=== PATIENT | female | born 1965 | race Caucasian/White ===

== ENCOUNTER 2021-06-27 13:59 | Inpatient (IN) | payer OTHER ==
[~2021-06-27] VITALS: Ht 149.9 cm; Wt 113.6 kg
--- NOTE | 2021-06-27 14:00 | NUR ---
PT ARRIVED VIA EMS FROM [place]. PT IS ALERT AND ORIENTED. PT STATES AT APPROX 1230 TODAY SHE EXPERIENCED NUMBNESS OF HER TONGUE AND NUMBNESS IN HER LEFT LEG AND ARM. PT SAYS HER LEFT HAND WAS ALSO WEAK. EMS REPORTS LEFT FACIAL DROOP. CURRENTLY PATIENT HAS IMPROVED. HAS CHRONIC OSTEOARTHRITIS IN BOTH KNEES AND PT HAS DIFFICULTY BENDING OR STRAIGHTENING BOTH KNEES. NIH IS CURRENTLY 1. PT WITH DECREASED SENSATION TO LIGHT TOUCH OVER LEFT FACE,ARM AND LEG. 1445 TELE NEURO EXAM COMPLETED WITH DR HPOKINS. RECOMMENDS ADMISSION. PT DENIES ALTERED SENSATION OVER LEFT FACE,ARM AND LEG DURING DR VALLE EXAM.
[2021-06-27] MEDS ORDERED: iohexol 350MG/ML 100ml bottle IV ONE (14:08)
[2021-06-27 14:12] LABS: BASOPHILS % (AUTO) 0.5 % (0-1); EOSINOPHILS # (AUTO) 0.1 X10'3 (0-0.9); EOSINOPHILS % (AUTO) 1.5 % (0-6); HEMATOCRIT 44.4 % (35.0-45.0); HEMOGLOBIN 14.7 g/dl (12.0-16.0); LYMPHOCYTES # (AUTO) 1.5 X10'3 (1.1-4.8); LYMPHOCYTES % (AUTO) 21.2 % (21-51); MEAN CORPUSCULAR HEMOGLOBIN 30.1 PG (27.0-31.0); MEAN CORPUSCULAR VOLUME 91.2 FL (78-98); MEAN PLATELET VOLUME 6.6 FL (7.4-10.4); MONOCYTES # (AUTO) 0.4 X10'3 (0-0.9); MONOCYTES % (AUTO) 6.2 % (2-12); NEUTROPHILS # (AUTO) 4.9 X10'3 (1.8-7.7); NEUTROPHILS % (AUTO) 70.6 % (42-75); PLATELET COUNT 263 X10'3 (140-440); RED BLOOD COUNT 4.87 X10'6 (4.20-5.60)
[2021-06-27 14:26] LABS: PARTIAL THROMBOPLASTIN TIME 27 SECONDS (22-32)
[2021-06-27 14:29] LABS: ALANINE AMINOTRANSFERASE 35 U/L (12-78); ALBUMIN 4.2 G/DL (3.4-5.0); ALKALINE PHOSPHATASE 93 IU/L (46-116); ANION GAP 11 (8-16); ASPARTATE AMINO TRANSFERASE 23 U/L (10-37); BILIRUBIN,TOTAL 0.4 MG/DL (0.1-1.0); BLOOD UREA NITROGEN 15 MG/DL (7-18); BUN/CREATININE RATIO 21.7 (6.6-38.0); CALCIUM 9.3 MG/DL (8.5-10.1); CHLORIDE 104 MMOL/L (99-107); CREATININE 0.69 MG/DL (0.40-0.90); GLUCOSE 95 MG/DL (70-104); POTASSIUM 3.9 MMOL/L (3.5-5.1); SODIUM 142 MMOL/L (135-145); TOTAL CARBON DIOXIDE 27.1 MMOL/L (24-32); TOTAL PROTEIN 8.4 G/DL (6.4-8.2); eGFR 88 ML/MIN
[2021-06-27 14:33] LABS: TROPONIN I < 0.04 NG/ML (0.0-0.05)
[2021-06-27] MEDS ORDERED: SERT-434 PO (15:25)
[2021-06-27] MEDS ORDERED: MELO-102 PO (15:25)
[2021-06-27] MEDS ORDERED: diphenhydrAMINE 25mg capsule PO PRN (16:40)
[2021-06-27] MEDS ORDERED: bisacodyl 10mg suppository rectal RC PRN (16:40)
[2021-06-27] MEDS ORDERED: ondansetron/PF 4mg/2ml inj IV PRN (16:40)
[2021-06-27] MEDS ORDERED: mag hydrox/Alum hydrox/simeth 30ml oral suspension PO PRN (16:40)
[2021-06-27] MEDS ORDERED: diphenhydrAMINE 50 mg/ml inj IV PRN (16:40)
[2021-06-27] MEDS ORDERED: metoclopramide 5 mg/ml inj IV PRN (16:40)
[2021-06-27] MEDS ORDERED: acetaminophen 325mg tablet PO PRN ×2 (16:40)
[2021-06-27] MEDS ORDERED: magnesium hydroxide 30ml (MOM) UD suspension PO PRN (16:40)
[2021-06-27] MEDS ORDERED: acetaminophen 650mg rectal suppository RC PRN (16:40)
[2021-06-27] MEDS ORDERED: morphine 2 MG/ML inj. syringe IV PRN (16:40)
[2021-06-27] MEDS ORDERED: HYDROcodone/acetaminophen 10/325mg tab PO PRN (16:40)
[2021-06-27] MEDS ORDERED: ondansetron 4mg rapidly disintigrating tab PO PRN (16:40)
[2021-06-27] MEDS ORDERED: HYDROcodone/acetaminophen 5mg/325mg tablet PO PRN (16:40)
[2021-06-27 17:54] LABS: MAGNESIUM 2.2 MG/DL (1.5-2.4); PHOSPHORUS 3.1 MG/DL (2.3-4.5)
[2021-06-27] MEDS: normal saline 1000ml 1,000 ML IV SCH (18:11)
--- NOTE | 2021-06-27 18:19 | NUR ---
pt up to [facility]
[2021-06-27 18:33] LABS: HEMOGLOBIN A1C 5.9 % (4.5-6.2)
[2021-06-27 19:19] LABS: UA COLLECTION TYPE CLN CATCH MIDSTREAM
[2021-06-27 19:20] LABS: CLARITY,URINE SLIGHTLY CLOUDY (Clear); COLOR,URINE YELLOW (Yellow)
[2021-06-27 19:21] LABS: PROTEIN,URINE NEGATIVE (Neg)
[2021-06-27 19:22] LABS: GLUCOSE, URINE NEGATIVE (Neg); KETONES,URINE NEGATIVE (Neg); LEUKOCYTE ESTERASE ,URINE NEGATIVE (Neg); NITRITES, URINE POSITIVE (Neg); OCCULT BLOOD,URINE NEGATIVE (Neg); UROBILINOGEN,URINE 0.2 E.U/dL (0.2-1.0)
[2021-06-27 19:27] LABS: RBC,URINE 0-2 /HPF (0-2)
--- NOTE | 2021-06-27 19:27 | NUR ---
PT SITTING UPRIGHT IN BED. ABLE TO COMMUNICATE HISTORY AND REASON FOR COMING TO ER. ALL PRIOR SYMPTOMS ARE REPORTED AAS RESOLVED. PT ONLY REPORTS SLIGHT TINGLING SENSATION TO LEFT CHEEK.
[2021-06-27 19:28] LABS: BACTERIA,URINE 4+ /HPF (Neg); MUCUS STRANDS NONE SEEN /LPF (Neg); SQUAMOUS EPITHELIAL CELL,UR FEW /LPF (FEW)
[2021-06-27] MEDS: docusate sod 100mg capsule PO SCH (20:00)
[2021-06-27] MEDS ORDERED: temazepam 15mg capsule PO PRN (21:00)
[2021-06-28] MEDS: heparin, porcine 5000 units/ml vial SQ SCH ×3 (00:07→16:03)
--- NOTE | 2021-06-28 06:46 | NUR ---
Patient in room AYDE 349. I have received report from Flavia FOY and had the opportunity to ask questions and assume patient care.
[2021-06-28 07:00] VITALS: BP 110/61
[2021-06-28 07:04] LABS: BASOPHILS % (AUTO) 0.8 % (0-1); EOSINOPHILS # (AUTO) 0.1 X10'3 (0-0.9); EOSINOPHILS % (AUTO) 2.6 % (0-6); HEMATOCRIT 38.9 % (35.0-45.0); LYMPHOCYTES # (AUTO) 1.4 X10'3 (1.1-4.8); LYMPHOCYTES % (AUTO) 25.3 % (21-51); MEAN CORPUSCULAR HEMOGLOBIN 30.6 PG (27.0-31.0); MEAN CORPUSCULAR HGB CONC 33.5 g/dL (33.0-36.5); MEAN CORPUSCULAR VOLUME 91.3 FL (78-98); MEAN PLATELET VOLUME 7.1 FL (7.4-10.4); MONOCYTES # (AUTO) 0.5 X10'3 (0-0.9); MONOCYTES % (AUTO) 8.8 % (2-12); NEUTROPHILS # (AUTO) 3.5 X10'3 (1.8-7.7); NEUTROPHILS % (AUTO) 62.5 % (42-75); PLATELET COUNT 229 X10'3 (140-440); RED BLOOD COUNT 4.26 X10'6 (4.20-5.60); WHITE BLOOD COUNT 5.6 X10'3 (4.5-11.0)
[2021-06-28] MEDS: normal saline 1000ml 1,000 ML IV SCH (07:30)
[2021-06-28] MEDS ORDERED: pantoprazole 40mg Tablet.DR PO SCH (07:30)
[2021-06-28 07:32] LABS: ALANINE AMINOTRANSFERASE 30 U/L (12-78); ALBUMIN 3.3 G/DL (3.4-5.0); ALBUMIN/GLOBULIN RATIO 0.9 (1.1-1.5); ALKALINE PHOSPHATASE 80 IU/L (46-116); ANION GAP 10 (8-16); ASPARTATE AMINO TRANSFERASE 18 U/L (10-37); BILIRUBIN,TOTAL 0.2 MG/DL (0.1-1.0); BLOOD UREA NITROGEN 17 MG/DL (7-18); CHLORIDE 108 MMOL/L (99-107); CHOL/HDL RATIO 6.5 (0.00-4.99); CHOLESTEROL 265 MG/DL (0-200); CREATININE 0.68 MG/DL (0.40-0.90); GLUCOSE 107 MG/DL (70-104); HDL CHOLESTEROL 41 MG/DL (35-60); LDL CHOLESTEROL 185 MG/DL (50-100); POTASSIUM 3.9 MMOL/L (3.5-5.1); SODIUM 143 MMOL/L (135-145); TOTAL CARBON DIOXIDE 25.5 MMOL/L (24-32); TOTAL PROTEIN 6.9 G/DL (6.4-8.2); TRIGLYCERIDES 192 MG/DL (20-135); eGFR 90 ML/MIN
[2021-06-28] MEDS: docusate sod 100mg capsule PO SCH (07:33)
[2021-06-28] MEDS ORDERED: sertraline 50mg tablet PO SCH (08:00)
[2021-06-28] MEDS ORDERED: CefTRIAXone/D5W-Rocephin 1gm 50 ML IV SCH (09:25)
--- NOTE | 2021-06-28 11:22 | NUR ---
PAGER ID: [phone] MESSAGE: [phone] Cristiana RANGEL: would you like any antithrombotic medication ordered per stroke policy? thanks, francy [phone]
--- NOTE | 2021-06-28 11:58 | NUR ---
Page sent to MRI... [id number] Cristiana Bhatti: patient has stat MRI ordered. What time do you think she'll be picked up? thanks! francy [phone]
[2021-06-28 13:14] VITALS: BP 137/84
[2021-06-28] MEDS ORDERED: atorvastatin 20mg tablet PO SCH (13:45)
[2021-06-28] MEDS ORDERED: aspirin 325mg tablet PO ONE (13:45)
--- NOTE | 2021-06-28 14:38 | NUR ---
PAGER ID: [phone] MESSAGE: [id number] Cristiana Bhatti: scarlet....MRI has resulted. thanks! francy [phone]
--- NOTE | 2021-06-28 15:36 | NUR ---
Calorie count consult: Pt on a 2 g Na restricted diet and eating well with 75-100% PO intake of meals. Current documented wt in EMR isn't scaled however pt appears well developed well nourished per H&P, with no documented decrease in muscle strength or edema, and pt denied wt loss or decreased appetite per malnutrition risk screen with RN. Calorie count not indicated at this time, d/w RN. D/w RN recommendation for diet change to heart healthy in view of elevated lipid panel with MD approval. Will continue to follow. Addendum: 06/28/21 at [address] Amended: Links added.
[2021-06-28] MEDS ORDERED: ATOR20TA66 PO (16:00)
[2021-06-28] MEDS ORDERED: PANT40TA54 PO (16:00)
[2021-06-28] MEDS ORDERED: ASPI-611 PO (16:00)
[2021-06-28] MEDS ORDERED: LACT1CAP26 PO (16:00)
--- NOTE | 2021-06-28 17:39 | NUR ---
Patient stable and appropriate for discharge home. IV removed, all belongings taken from room. New medications e-scripted to preferred pharmacy. All discharge instructions and education given and reviewed with patient, all questions answered.
--- NOTE | 2021-06-28 17:40 | NUR ---
Student documentation: I have reviewed and agree with all interventions, assessments performed and documented by SN Red. Student Medication Administration: For this medication-pass time frame, all medication were reviewed, dispensed, administered and documented per hospital policy by SN Red.
[2021-06-28] MEDS ORDERED: lactobacillus rhamnosus 10,000 MMU CELLS/CAPSULE PO SCH (20:00)
== END 2021-06-28 17:30 | disposition home or self-care (01) | DRG 69 ==
LOC: ER 14:00 → ED HOLD 16:45 → SUR 3N 23:10
PROVIDERS: ADMIT Family Medicine; ATTEND Family Medicine
PROC: B3251ZZ Computerized Tomography (CT Scan) of Bilateral Common Carotid Arteries using Low Osmolar Contrast (ICD-10-PCS; principal; 2021-06-27)
PROC: B32G1ZZ Computerized Tomography (CT Scan) of Bilateral Vertebral Arteries using Low Osmolar Contrast (ICD-10-PCS; 2021-06-27)
PROC: B32R1ZZ Computerized Tomography (CT Scan) of Intracranial Arteries using Low Osmolar Contrast (ICD-10-PCS; 2021-06-27)
PROC: B3281ZZ Computerized Tomography (CT Scan) of Bilateral Internal Carotid Arteries using Low Osmolar Contrast (ICD-10-PCS; 2021-06-27)
DX: G45.9 Transient cerebral ischemic attack, unspecified (principal); Z68.43 Body mass index [BMI] 50.0-59.9, adult; G81.94 Hemiplegia, unspecified affecting left nondominant side; E66.01 Morbid (severe) obesity due to excess calories; G43.109 Migraine with aura, not intractable, without status migrainosus; I10 Essential (primary) hypertension; Z86.73 Personal history of transient ischemic attack (TIA), and cerebral infarction without residual deficits; Z79.899 Other long term (current) drug therapy
CPT/HCPCS: 36415; 70450; 70496; 70498; 70551; 71045; 80053; 80061; 81001; 83036; 83735; 83880; 84100; 84443; 84484; 85025; 85610; 85730; 87077; 87081; 87088; 87186; 93005; 93306; 99285; G0378; J0696; J1644; J7030; Q9967

== ENCOUNTER 2025-05-17 17:12 | Inpatient (IN) | payer MEDICAID ==
[~2025-05-17] VITALS: Ht 154.9 cm; Wt 100.7 kg
[~2025-05-17 17:12] MED LIST: ATOR20TA66 PO; LACT1CAP26 PO; PANT40TA54 PO; SERT-434 PO
--- NOTE | 2025-05-17 17:44 | ELECTROCARDIOGRAPH REPORT ---
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
--- NOTE | 2025-05-17 17:45 | Physician Documentation ---
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 She reportedly has a history of a similar episode in 2020. She denies facial droop, speech slur, leg weakness, N/V/D. Medication Reconciliation Allergies: Coded Allergies: No Known Allergies (Unverified , 06/27/21) Scheduled Atorvastatin Calcium (Atorvastatin Calcium), 40 MG PO DAILY Lactobacillus Rhamnosus (Culturelle), 10,000 MMU PO Q12H Pantoprazole Sodium (Pantoprazole Sodium), 40 MG PO BKF Sertraline HCl (Sertraline HCl), 2 TAB PO DAILY, (Reported) Review of Systems All Other Systems at this time: Reviewed and Negative Physical Exam Vital Signs: RN Vital Signs have been reviewed: Yes, Heart Rate: 89, Respiratory Rate: 17, BP: 141/95, Pulse Oximetry: 95, Weight: 100.700 Oxygen Flow Rate: 0 General Appearance HEENT: PERRL, moist oral mucosa, EOMI Pulmonary: No respiratory distress Cardiac: RRR, no murmur, rub or gallop GI: nondistended, soft, nontender, no guarding, no rebound MSK: no deformity Skin: w/d/i, no rash Neuro: alert, nonfocal, 5/5 strength BLE and BUE. Psych: normal affect Progress Results/Orders Results/Orders Orders - JOVON DE ANDA MD Cbc/Diff (05/17/25 17:18) Monitor (05/17/25 17:18) 2 Large Bore Ivs (05/17/25 17:18) Electrocardiogram (05/17/25 17:18) Chest,Single View (05/17/25 17:18) Accucheck (05/17/25 17:18) Ct Stroke Alert (05/17/25 17:18) BMP (05/17/25 17:18) PTT (05/17/25 17:18) Pt Inr (05/17/25 17:18) Saline Prov.Neuro Consult (05/17/25 17:18) Cta Neck/Head (05/17/25 ) Completed Orders - JOVON DE ANDA MD Ct Stroke Alert (05/17/25 17:18) Cta Neck/Head (05/17/25 ) Vital Signs 05/17/25 17:34 Pulse 89 Resp 17 B/P (MAP) 141/95 Pulse Ox 95 O2 Flow Rate 0 Medical Decision Making Findings 60 year old female activated as level 1 stroke alert but NIH scale 1 at most. P ending workup, will sign out to oncoming ER physician for disposition. Differential Dx:Considerations: Include: Blair's Palsey, CVA, DKA, Electrolyte imbalance, Encephalopathy, Hypoxemia, Hypoglycemia, Mass lesion, TIA Departure Disposition: 30 STILL A PATIENT Impression: Primary Impression: Weakness Condition: Stable Referrals: NO PRIMARY CARE PROVIDER (PCP) Education Educated: Patient Educated regarding: diagnosis, treatment, prognosis, need for follow up Signature Scribe Signature: . Attestation: . JOVON DE ANDA MD May 17, 2025 17:45
--- NOTE | 2025-05-17 17:45 | RADIOLOGY REPORT ---
Exam: CT CT STROKE ALERT History: Stroke Alert Technique: [address] images through the posterior fossa and the supratentorial compartment were acquired without contrast and imaged using soft tissue and bone algorithms. RADIATION DOSE: DLP 114.36 mGy.cm; CTDI vol 62.1 mGy. Comparison: None Findings: There is no evidence of an intracranial hemorrhage, acute large vessel infarct, mass effect, or midline shift. There is no significant cerebral atrophy. Mild calcification of the carotid siphons. Suboccipital craniotomy. The orbits, paranasal sinuses, sella, middle ears, and mastoids are unremarkable. The superficial soft tissues are within normal limits. Impression: 1. No acute intracranial abnormality.
--- NOTE | 2025-05-17 17:49 | RADIOLOGY REPORT ---
CT CTA NECK/HEAD INDICATION: Stroke Alert TECHNIQUE: Volumetric multi-detector CT images of the head were obtained without administration of IV contrast.. CT angiography along with MIP and MPR images were obtained of the [place] of [place] arteries. All CT scans at this facility use dose modulation, iterative reconstruction, and/or weight based dosing when appropriate to reduce radiation dose to as low as reasonably achievable. 3-D postprocessing was performed on a separate workstation under radiologist supervision. IV CONTRAST: 100 mL of low osmolar intravenous iodinated contrast material was administered. COMPARISON: CT CT STROKE ALERT on DOS: 05/17/25 FINDINGS: CT HEAD: Parenchyma: No acute hemorrhage. There is no mass effect, midline shift, or herniation. There is preservation of the costa white differentiation. Ventricles: There is no hydrocephalus. Extra-axial spaces: There are no extra-axial fluid collections. Other: Visualized portions of the paranasal sinuses and mastoid air cells are clear. Suboccipital craniectomy. ANTERIOR CIRCULATION: Distal internal carotid arteries including the petrous, cavernous, and supraclinoid segments are patent bilaterally. Anterior cerebral arteries including the A1 and A2 segments are patent bilaterally. Anterior communicating artery patent without aneurysm formation. Middle cerebral arteries including the horizontal M1 and sylvian M2 are patent bilaterally. Congenitally absent versus hypoplastic posterior communicating arteries. POSTERIOR CIRCULATION: Posterior cerebral arteries are patent bilaterally. Vertebral arteries are codominant The intracranial segments of the vertebral arteries are patent bilaterally. The basilar artery is patent without aneurysm formation. The posterior inferior cerebellar arteries are patent bilaterally. CERVICAL VESSELS: The thoracic aortic arch is patent without evidence of aneurysmal dilatation or dissection. The right common carotid artery, carotid bulb, and cervical segment of the right internal carotid artery are patent The left common carotid artery, carotid bulb, and cervical segment of the left internal carotid artery are patent The cervical segments of the right vertebral artery are patent Retropharyngeal course of bilateral frqve-sqzqosm-dpxc-left carotid vessels. OTHER: The lung apices are clear. Prominence of the main pulmonary artery, which may indicate pulmonary hypertension. IMPRESSION: 1. No large vessel occlusion, aneurysmal dilatation, or dissection seen within the intracranial or cervical vessels. 2. Prominence of the main pulmonary artery, which may indicate pulmonary hypertension.
[2025-05-17 17:52] LABS: MEAN PLATELET VOLUME 6.6 FL (7.4-10.4); RED CELL DISTRIBUTION WIDTH 14.6 % (11.5-14.5)
--- NOTE | 2025-05-17 17:54 | RADIOLOGY REPORT ---
CHEST RADIOGRAPH Indication: Stroke Alert Technique: DI CHEST,SINGLE VIEW COMPARISON: None FINDINGS: 1 The cardiac silhouette is enlarged. The lungs demonstrate bilateral patchy airspace opacities. The pulmonary vasculature is prominent. Small bilateral pleural effusions. There is no pneumothorax. IMPRESSION: Cardiomegaly with pulmonary vascular congestion and bilateral patchy airspace opacities. Small bilateral pleural effusions
[2025-05-17 18:04] LABS: CREATININE 0.60 MG/DL (0.40-0.90); TOTAL CARBON DIOXIDE 27.0 MMOL/L (24-32); eCRCL 75 ML/MIN; eGFR > 90 ML/MIN
[2025-05-17 18:06] LABS: APTT 25 SECONDS (22-32); INR 1.0 INR
--- NOTE | 2025-05-17 18:28 | [facility] CONSULT REPORT ---
[facility] Procedure Note [facility] Procedure Note Consult [facility] Note # Demographics Consult Type: Acute Stroke Level 1 (0-4.5 hrs) Patient Location: Emergency Room First Name: Connie Last Name: Davy Date of : 1965 Age: 60 Gender: Female Facility: [facility] Time of Initial Page (): 05/17/2025 17:35 First Contact with Site (): 05/17/2025 17:36 # HPI History: 60y F chiari malformation who had onset of feeling nauseous, feeling unsteady, dizzy Last Known Normal: 1500 # Scores Time of exam and NIHSS (): 05/17/2025 17:43 Level of Consciousness 1a: [0] = Alert; keenly responsive LOC Questions 1b: [0] = Answers both questions correctly LOC Commands 1c: [0] = Performs both tasks correctly Best Gaze 2: [0] = Normal Visual 3: [0] = No visual loss Facial Palsy 4: [0] = Normal symmetrical movements Motor Arm Left 5a: [0] = No drift Motor Arm Right 5b: [0] = No drift Motor Leg Left 6a: [0] = No drift Motor Leg Right 6b: [0] = No drift Limb Ataxia 7: [0] = Absent Sensory 8: [1] = Mlet-hl-zevavkig sensory loss Best Language 9: [0] = No aphasia Dysarthria 10: [0] = Normal Extinction and Inattention 11: [0] = No abnormality NIHSS Total: 1 # Data Time Head CT personally read by me (): 05/17/2025 17:[address]: - no bleed Time CTA personally reviewed by me (): 05/17/2025 17:26 CTA Head: - no large vessel occlusion - preliminarily reviewed by me, please refer to radiology read for official reading CTA Neck: - patent vessels - preliminarily reviewed by me, please refer to radiology read for official reading # Assessment Impression: - Vertigo Differential Diagnosis: - Ischemic Stroke (Acute) - Stroke Mimic # Plan Thrombolytic/Intervention: NOT IV Thrombolysis or IA Intervention candidate Thrombolytic Exclusion (< 3 hour window): - Individualized disability discussion had with the patient and/or family, and they have determined the current deficits to be non-disabling and do not wish to proceed with thrombolytic Intraarterial Exclusion: - no large vessel occlusion (LVO) Blood Pressure Management: - nicardipine - labetalol Target Blood Pressure: - SBP < 220 - DBP < 120 - Permissive HTN for 24 hrs followed by slowly lowering to normotension with retirement goal of SBP <130 Labs: - hemoglobin A1c - lipid panel - TSH Imaging: (urgency: routine): - MRI Brain without contrast Diagnostic Test: - echo without bubble study Therapy/Evaluation: - PT/OT evaluation - NPO until swallow evaluation Medication: - aspirin 81 mg daily - start statin with goal of LDL < 70 Other: - If patient has any neurological deterioration please call me back immediately - telemetry monitoring - will need event monitor or loop recorder as outpatient if atrial fibrillation not found as inpatient - I have discussed my recommendations with the referring provider # Logistics Attestation of consult completion: The patient is located at: [facility]. Facility staff participated in the visit. I performed this telemedicine visit from my offsite office utilizing interactive 2 way audio and visual telecommunication technology at the request of the onsite emergency room provider. Consent: Verbal consent was obtained from the patient and/or family for this encounter. Total time spent in telemedicine encounter: I spent 18 minutes reviewing cli nical data and/or imaging, obtaining history, examining the patient, communicating with the onsite care team, and in preparation of this report. # Demographics First Name: Connie Last Name: Davy Facility: [facility] Electronically signed at 05/17/2025 18:27 ([place] Time) by Farrah Chu DO Neuro Consult Order placed for: Yes FARRAH CHU DO May 17, 2025 18:28
[2025-05-17 18:33] LABS: LEUKOCYTE ESTERASE ,URINE NEGATIVE (Neg); NITRITES, URINE NEGATIVE (Neg); OCCULT BLOOD,URINE SMALL (Neg)
[2025-05-17 18:49] LABS: UA COLLECTION TYPE CLN CATCH MIDSTREAM
[2025-05-17 18:54] LABS: AMORPHOUS URATES 1+; SQUAMOUS EPITHELIAL CELL,UR FEW /LPF (FEW)
[2025-05-17 18:57] LABS: HYALINE CASTS 0-3 /LPF (NEGATIVE)
[2025-05-17] MEDS ORDERED: potassium Cl 20 mEq SR tablet PO PRN ×2 (19:30)
[2025-05-17] MEDS ORDERED: magnesium sulf-water 4G/100mL 100 ML IV PRN (19:30)
[2025-05-17] MEDS ORDERED: potassium Cl 40MEQ/1/2NS 520ml 520 ML IV PRN (19:30)
[2025-05-17] MEDS ORDERED: magnesium sulf-water 2g/50mL 50 ML IV PRN (19:30)
[2025-05-17] MEDS ORDERED: mag hydrox/Alum hydrox/simeth 30ml oral suspension PO PRN (19:30)
[2025-05-17] MEDS ORDERED: magnesium hydroxide 30ml (MOM) UD suspension PO PRN (19:30)
[2025-05-17] MEDS ORDERED: magnesium Cl slow-release 64mg tablet PO PRN (19:30)
[2025-05-17] MEDS: heparin, porcine 5000 units/ml vial SQ SCH (19:52)
[2025-05-17] MEDS: ondansetron/PF 4mg/2ml inj IV PRN (19:53)
[2025-05-17] MEDS: docusate sod 100mg capsule PO SCH (19:53)
[2025-05-17] MEDS: K and/or MAG REPLACEMENT MC SCH (20:00)
[2025-05-17] MEDS: PERFLUTREN PROTEIN-A MICROSPHR (Optison) 0.22 MG/ML 3ML VIAL IV ONE (20:08)
--- NOTE | 2025-05-17 20:41 | HISTORY AND PHYSICAL-Residence ---
History & Physical Providers to CC Resident Creating Document: HARSHIL JAMA, RES ~ History of Present Illness Reason for Admit\Complaint: generalized weakness and L hand weakness History of Present Illness 60 years old morbid obese female with past medical history of history of TIA, morbid obesity , depression ,Hypertension and with history of Chiari malformation of the head treated with surgery is comes to ED with generalised weakness and left hand weakness Which Began gradually and worsened around 3:00pm today and she also reported head ache, dizziness and nausea. She has been experiencing shortness of breath for many days becoming shor of breath after walking 50 mts, at presentation, She noted having chest pain and SOB. She denies any slurred speech, facial droop, visual changes, loss of conciousness, seziures, trauma or recent falls She had a remote history of TIA 4 years ago for which she was admitted in [facility] and she not currently on any medications She has a history of Sleep apnea and uses CPAP at home Allergies: Coded Allergies: No Known Allergies (Unverified , 06/27/21) Home Medications Home Medications Active Atorvastatin Calcium 20 Mg Tablet 40 Mg PO DAILY Culturelle (Lactobacillus Rhamnosus) 1 Each Capsule 10,000 Mmu PO Q12H Pantoprazole Sodium 40 Mg Tablet.dr 40 Mg PO BKF Reported Sertraline HCl 100 Mg Tablet 2 Tab PO DAILY Past Medical History Past Medical History TIA, morbid obesity , depression ,Hypertension and with history of Chiari malformation of the head treated with surgery, Past Surgical History Surgical History Comment Chiari malformation of the head treated with surgery Right Total Knee replacement 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 tonsillectomy Past Social History Social History Comment patient lives in her home alone but planning to shift to her daughters house She walks using walker She is not a smoker,occasional alcohol drinker 1 beer per month , Not a drug user regular diet on ozempic for weight loss PCP: ROS All Other Systems: Reviewed and Negative ROS Constitutional: No fever, chills, dizziness, weakness, weight gain or loss Eyes: No pain, erythema, discharge, blurring of vision ENT: No sore throat, epistaxis, tinnitus Cardiovascular: No chest pain, No current palpitations, syncope, lower extremity edema, paroxysmal nocturnal dyspnea Respiratory: No shortness of breath , No cough, hemoptysis Gastrointestinal: No decrease appetite , No Nausea, vomiting,diarrhea and abdominal pain. Genitourinary: No frequency,urgency,No nocturia, hematuria or dysuria Musculoskeletal:Patient didnt report any symptoms Integumentary: No change in skin, hair, nails. No swelling, bruising, abrasions Neurologic: patient reports headache and tingling in her left hand , No neck pain, Psychiatric: No depression,No delusions, loss of interest in normal activity or change in sleep pattern, hallucinations, suicidal ideations Endocrine: No fatigue, weakness, polydipsia, polyuria, change in appetite, heat or cold intolerance, sweating, dry skin Hematological: No bleeding, petechiae, bruising Allergies: No asthma or urticaria Exam Vitals: Vital Signs Date Time Temp Pulse Resp B/P (MAP) Pulse Ox O2 Delivery O2 Flow Rate FiO2 05/17/25 19:52 16 05/17/25 18:58 05/17/25 18:32 92 98 0 05/17/25 17:34 98.1 General: Patient is alert, orientedx4 , answering questions with normal speech HEENT: Normocephalic and atraumatic. Dry Oral mucosa . No visible head injuries Neck: Trachea is in midline. No masses or JVD Chest: Normal air movement bilaterally , Bilateral normal breath sounds. No crackles, rhonchi or wheezes Cardiovascular: Regular rate and regular rhythm. S1-S2 normal. No rubs or murmurs Abdomen: No tenderness present. Soft and nondistended. 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 , awake, speech is clear CN II-XII - intact Normal Tone and Bulk in all extremities Sensation is intact in all extremities Co-ordination is intact Skin: warn and dry Diagnostic Data Last Recorded Lab Results: 05/18/25 0448 05/18/25 0448 Diagnostic Data: Laboratory Tests Test 05/17/25 17:35 Prothrombin Time 10.3 SECONDS (9.0-12.0) INR International Normalized Ratio 1.0 INR Activated Partial Thromboplast Time 25 SECONDS (22-32) Coagulation Comments Additional Plan 60 years old female with history of TIA, morbid obesity , depression ,Hypertension and with history of Chiari malformation of the head treated with surgery is currently evaluated for left hand weakness Generalized weakness and Left Hand weakness Possible due to TIA vs Stroke NIHSS - 1 ABCD2 score- 1 60 years morbid obese women who presented to ED with left hand weakness for a brief period H/H: 12.2/36.6 Wbc: 7.4 Na: 136, K-4.2, BUN;Cr= 31.7 , BUN;19 , Creatinine: 0.60 CRP;0.67, ESR-18 TSH: 1.97 Utox: Negative, UA;+4 bacteria Chest xray : Cardiomegaly with pulmonary vascular congestion and bilateral patchy airspace opacities. Small bilateral pleural effusions CTA Neck: No large vessel occlusion, aneurysmal dilatation, or dissection seen within the intracranial or cervical vessels. Prominence of the main pulmonary artery, which may indicate pulmonary hypertension. CT head : No acute intracranial abnormality Plan: Follow Up with MRI head Follow up with ECHO Aspiration precautions neurochecks Started Asprine 81mg Po OD Started atorvastain 40mg Po OD Follow up with CBC/CMP/B12 levels Urinary tract infection: Patient denies any dysuria,oliguria H/H: 12.2/36.6 Wbc: 7.4 Na: 136, K-4.2, BUN;Cr= 31.7 , BUN;19 , Creatinine: 0.60 UA: 4+ Bacteria Plan: Follow up Ur culture sensitiviy started on Rocephin 1g iv daily Shortness of breath Possible due to CHF vs Pulmonary HTN related to her Sleep Apnea : Patient has a history of CPAP use at home recently presents with SOB and Chest heavyness Chest Xray : Cardiomegaly with pulmonary vascular congestion and bilateral patchy airspace opacities. Small bilateral pleural effusion CTA neck/Head : No large vessel occlusion, aneurysmal dilatation, or dissection seen within the intracranial or cervical vessels. Prominence of the main pulmonary artery, which may indicate pulmonary hypertension proBNP; 144 Plan: follow up with Echocardiogram follow up with troponins Possible cardiology consult Morbid obesity: Patient BMI is 41.9 ,she lost 60 pounds in a year and she is on ozempic Plan: Follow up with PCP and Continue Home med ozempic 2mg SQ7D Heart healthy diet Follow up with Lipid panel Hypertension Patient has a history of HTN and on home med lisinipril 5mg Po daily Today her Blood pressure : 101/58 , heart rate :78 Plan : Not continuing home med lisinopril In view of soft blood pressure and Maintaining permissive Hypertension Depression Patient has a history of depression Plan: follow up with PCP and started home med Sertraline 100mg 2 tab po daily DVT prophylaxis: heparin Analgesia: Morphine/narco/Tylenol Line/tube: PIV Nutrition: Heart healthy diet PT: Ordered. Prognosis: Guarded Disposition : Patient will be monitored in ortho under 24 hrs telemetry , Follow up with MRI and Echo Harshil jama PGY1 Date of Service: May 17, 2025 Billing Provider: MAYKEL HOLLEY MD Addendum Attestation I agree with the residents assessment and plan as below: Plan: start ceftriaxone for uti follow up echo trend troponins CCT 45 min using HIPPA compliant A/V technology HARSHIL JAMA, RES May 17, 2025 20:41 MAYKEL HOLLEY MD May 18, 2025 09:09
[2025-05-17 20:45] LABS: URINE AMPHETAMINE SCREEN NEGATIVE (Neg); URINE BARBITUATE SCREEN NEGATIVE (Neg); URINE BENZODIAZEPINES SCREEN NEGATIVE (Neg); URINE CANNABINOID SCREEN NEGATIVE (Neg); URINE COCAINE SCREEN NEGATIVE (Neg); URINE METHADONE SCREEN NEGATIVE (Neg); URINE OPIATE SCREEN NEGATIVE (Neg); URINE PHENCYCLIDINE SCREEN NEGATIVE (Neg)
[2025-05-17 20:45] LABS: PRO BRAIN NATRIURETIC PEPTIDE 144 PG/ML (0-125)
[2025-05-17] MEDS: aspirin 81mg, enteric-coated 1 TAB TABLET.DR PO SCH (21:12)
[2025-05-17] MEDS ORDERED: LISI5TAB22 PO (21:23)
[2025-05-17] MEDS ORDERED: MELO-102 PO (21:23)
[2025-05-17] MEDS ORDERED: CHOL500044 PO (21:23)
[2025-05-17] MEDS ORDERED: METF-1203 PO (21:23)
[2025-05-17] MEDS ORDERED: ASPI-1397 PO (21:23)
[2025-05-17] MEDS ORDERED: SEMA2PEN SQ (21:23)
[2025-05-17 21:59] VITALS: BP 109/68; PULSE 74; RESP 15; TEMP 97.6; O2SAT 98
[2025-05-18] VITALS (7 sets, daily range): BP systolic 98–120; BP diastolic 64–87; PULSE 66–99; RESP 14–18; TEMP 97.2–98; O2SAT 93–99
[2025-05-18] MEDS: CefTRIAXone/D5W-Rocephin 1gm 50 ML IV SCH (00:14)
[2025-05-18 05:34] LABS: MEAN PLATELET VOLUME 6.7 FL (7.4-10.4); RED CELL DISTRIBUTION WIDTH 14.7 % (11.5-14.5)
[2025-05-18 05:55] LABS: CHOL/HDL RATIO 3.5 (0.00-4.99); CREATININE 0.83 MG/DL (0.40-0.90); LDL CHOLESTEROL 81 MG/DL (50-100); TOTAL CARBON DIOXIDE 32.3 MMOL/L (24-32); eCRCL 54 ML/MIN; eGFR 70 ML/MIN
[2025-05-18] MEDS ORDERED: non-formulary drug (Sertraline HCl 2 TAB) PO SCH (08:00)
[2025-05-18] MEDS ORDERED: ATOR40TA72 PO (13:03)
--- NOTE | 2025-05-18 15:12 | RADIOLOGY REPORT ---
CLINICAL HISTORY: TIA/CVA TECHNIQUE: Routine multiplanar imaging of the brain was performed without gadolinium contrast. COMPARISON: CT CTA NECK/HEAD on DOS: 05/17/25, CT CT STROKE ALERT on DOS: 05/17/25, MRI HEAD on DOS: 06/28/21 FINDINGS: There is no abnormal restricted diffusion to suggest acute infarction. There are scattered T2 hyperintense foci within the white matter both [place] hemispheres, which are of doubtful clinical significance.. There has been bilateral suboccipital craniectomy. There is no evidence for acute ischemic changes, mass, mass effect, or extra- axial fluid collection. There is no hydrocephalus or midline shift. The cerebral sulci and subarachnoid cisterns are not effaced. The imaged paranasal sinuses are clear. The globes are intact. The midline structures, including the corpus callosum, are unremarkable. The intracranial flow voids are maintained. IMPRESSION: No acute intracranial abnormality seen. No evidence for acute infarct. Mild chronic small vessel schema change. Bilateral suboccipital craniectomy.
--- NOTE | 2025-05-18 18:35 | CARDIOLOGY REPORT ---
APPROVED REPORT EXAM: Comprehensive 2D, Doppler, and color-flow Echocardiogram. Patient Location: 402 Blood Pressure: 137/74 mmHg Heart Rate: 68 bpm Rhythm: NSR Indications CHF Hypertension [employer] in [place] Previous echo 06/27/21 [facility] 65-70% EF ; negative bubble study 2D Dimensions LA Diam 4.1 cm IVSd 1.1 (0.7-1.1cm) LVDd 3.7 cm PWd 0.9 (0.7-1.1cm) IVSs 1.4 (0.8-1.2cm) LVDs 1.8 (2.5-4.0cm) Aortic Root(2D) 3.1 cm PWs 1.4 (0.8-1.2cm) LVOT Diameter 1.96 (1.8-2.4cm) LVEF(%) 75.0 (>50%) Ao Asc Diam. 3.45 cm IVC 19.14 mm FS (%) 53.0 % SV 50.7 ml CO 3.9 L/min M-Mode Dimensions MV EPSS 0.6 (<0.5cm) Aortic Valve AoV Peak Denilson. 141.0 cm/s AoV VTI 30.4 cm AO Peak GR. 7.9 mmHg AO Mean GR. 5 mmHg LVOT VTI 23.63 cm LVOT Peak Denilson. 108.2 cm/s OLESYA(VTI)/BSA 2.35 cm2/m2 OLESYA (VTI) 2.35 cm2 Mitral Valve MV E Velocity 64.7 cm/s MV Peak Gr. 3 mmHg MV DECEL TIME 220 ms MV A Velocity 88.8 cm/s MV PHT 72 ms E/A Ratio 0.7 MVA (PHT) 3.06 cm2 MV VMax 82.4 cm/s TDI Medial E' P. V 8.87 cm/s E/Medial E' 7.3 Tricuspid Valve TR P. Velocity 171 cm/s RAP ESTIMATE 10 mmHg TR Peak Gr. 12 mmHg RVSP 22 mmHg Pulmonary Vein S1 Velocity 47.1 cm/s D2 Velocity 36.4 cm/s PVa Velocity 27.5 cm/s PVa Duration 76 msec LEFT VENTRICLE Normal LV size and wall thickness. Overall systolic function is normal. LVEF is 70%. RIGHT VENTRICLE RV appears normal in size and contractility. ATRIA Left atrium is mildly dilated. AORTIC VALVE Trileaflet AV appears sclerotic without stenosis. Trace insufficiency. MITRAL VALVE MV is thickened with mild annular calcification and no stenosis. Trace mitral regurgitation. TRICUSPID VALVE The tricuspid valve is normal in structure. Trace tricuspid regurgitation. PULMONIC VALVE The pulmonary valve is normal in structure. Trace pulmonic regurgitation. GREAT VESSELS The aortic root is normal in size. The ascending aorta is normal in size. The IVC is normal in size and collapses >50% with inspiration. PERICARDIUM There is no pericardial effusion. Other Information Study Quality: Adequate Conclusion Normal LV size and wall thickness. Overall systolic function is normal. LVEF is 70%. RV appears normal in size and contractility. Left atrium is mildly dilated. Trileaflet AV appears sclerotic without stenosis. Trace insufficiency. MV is thickened with mild annular calcification and no stenosis. Trace mitral regurgitation. The tricuspid valve is normal in structure. Trace tricuspid regurgitation. The pulmonary valve is normal in structure. Trace pulmonic regurgitation. There is no pericardial effusion.
--- NOTE | 2025-05-18 20:29 | PROGRESS NOTE- Residence ---
Progress Note - Resident Providers to CC Resident Creating Document: SELVIN NAVARRO RES ~ Antibiotic Timeout Antibiotic Ordered?: Yes Subjective Patient was seen and examined bedside. She reports improvement of symptoms. She reports that she has headache since yesterday. She denies vision problems, numbness. Objective Vital Signs Date Time Temp Pulse Resp B/P (MAP) Pulse Ox O2 Delivery O2 Flow Rate FiO2 05/18/25 18:30 81 05/18/25 17:33 16 05/18/25 10:00 97.2 117/75 (89) 95 Room Air 05/18/25 08:00 0.0 Result Diagram: 05/18/258 05/18/25 0448 Awake , alert, and oriented x4, resting comfortably in the bed, in no acute distress HEENT: Atraumatic, normocephalic, EOMI, anicteric sclera ; pink conjunctiva Neck: Trachea midline. Supple, full range of motion, no JVD Cardiac: Regular rhythm, regular rate with no murmurs all over the precordium. Respiratory: Equal breath sounds bilaterally, no tachypnea, no wheezing ,rub or rales, Chest wall is symmetric and without deformity. Gastrointestinal: Abdomen symmetric, non-distended, soft, non-tender, normal bowel sounds x4 quadrant, normoactive, no hepatosplenomegaly Musculoskeletal: No pedal edema, no cyanosis Neurological: Speech is clear, alert, and oriented x 4. Normal Tone and Bulk in all extremities, deep tendon reflexes normal, cerebellar intact. Cranial nerves II-XII intact. 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 Small bilateral pleural effusions CTA Neck: No large vessel occlusion, aneurysmal dilatation, or dissection seen within the intracranial or cervical vessels. Prominence of the main pulmonary artery, which may indicate pulmonary hypertension. CT head : No acute intracranial abnormality Plan: Follow Up with MRI head Follow up with ECHO Aspiration precautions neurochecks Started Aspirin 81mg Po OD Started atorvastain 40mg Po OD Follow up with CBC/CMP/B12 levels 05/18/25: MRI head shows no acute intracranial abnormality with no evidence of acute infarct with mild chronic small-vessel ischemic change and bilateral suboccipital craniectomy. Continue aspirin 81 mg p.o. OD as per Neurology Echo shows LVEF of 70% with mildly dilated left atrium and trace insufficiency of aortic wall with trace mitral, tricuspid and pulmonic regurgitation Started on heart healthy diet after swallow test Monitor her neurological condition and any alteration in consciousness Started on Tylenol p.r.n. for headache Follow up with orthostatic vitals Urinary tract infection: Patient denies any dysuria,oliguria H/H: 12.2/36.6 Wbc: 7.4 Na: 136, K-4.2, BUN;Cr= 31.7 , BUN;19 , Creatinine: 0.60 UA: 4+ Bacteria Plan: Follow up Ur culture sensitiviy started on Rocephin 1g iv daily 05/18/25: Urine culture positive for Gram-negative rods Continue IV Rocephin Shortness of breath Possible due to CHF vs Pulmonary HTN related to her Sleep Apnea : Patient has a history of CPAP use at home recently presents with SOB and Chest heavyness Chest Xray : Cardiomegaly with pulmonary vascular congestion and bilateral patchy airspace opacities. Small bilateral pleural effusion CTA neck/Head : No large vessel occlusion, aneurysmal dilatation, or dissection seen within the intracranial or cervical vessels. Prominence of the main pulmonary artery, which may indicate pulmonary hypertension proBNP; 144 Plan: follow up with Echocardiogram follow up with troponins Possible cardiology consult 05/18/25: Shortness of breath has improved today Troponins are normal Echo shows LVEF of 70% with mildly dilated left atrium and trace insufficiency of aortic wall with trace mitral, tricuspid and pulmonic regurgitation O2 sat at 95 on room air Monitor vitals Morbid obesity: Patient BMI is 41.9 ,she lost 60 pounds in a year and she is on ozempic Plan: Follow up with PCP and Continue Home med ozempic 2mg SQ7D Heart healthy diet Hypertension Patient has a history of HTN and on home med lisinipril 5mg Po daily Today her Blood pressure : 101/58 , heart rate :78 Plan : Not continuing home med lisinopril In view of soft blood pressure and Maintaining permissive Hypertension Depression Patient has a history of depression Plan: follow up with PCP and started home med Sertraline 100mg 2 tab po daily DVT prophylaxis: heparin Analgesia: Morphine/narco/Tylenol Line/tube: PIV Nutrition: Heart healthy diet PT: Ordered. Prognosis: Guarded Disposition: Continue medical management, PT eval and DC plan Resident MD attestation: The patient note has been reviewed and supervised by senior residents PGY-2/ PGY-3. Patient was seen, examined and discussed with attending physician. Selvin Navarro MD Internal Medicine resident, PGY-1 Date of Service: May 18, 2025 Billing Provider: NISHANT DUDLEY MD Common Visit Codes: [id number] INP/OBS CARE(HIGH) SELVIN NAVARRO, RES May 18, 2025 20:29 NISHANT DUDLEY MD May 19, 2025 08:15
[2025-05-19 05:55] LABS: MEAN PLATELET VOLUME 6.5 FL (7.4-10.4); RED CELL DISTRIBUTION WIDTH 14.3 % (11.5-14.5)
[2025-05-19 06:00] VITALS: BP 99/63; PULSE 76; RESP 18; TEMP 97.8; O2SAT 96
[2025-05-19 06:19] LABS: CREATININE 0.79 MG/DL (0.40-0.90); TOTAL CARBON DIOXIDE 32.4 MMOL/L (24-32); eCRCL 57 ML/MIN; eGFR 74 ML/MIN
[2025-05-19 08:00] VITALS: BP_SYST 107; BP_SYST 110; BP_SYST 112; BP_DIAS 75; BP_DIAS 79; BP_DIAS 83; PULSE 118; PULSE 91; PULSE 92; RESP 14; O2SAT 98
[2025-05-19] MEDS ORDERED: CEFD300C3 PO (10:12)
[2025-05-19] MEDS ORDERED: LACT1CAP26 PO (10:13)
[2025-05-19 11:38] VITALS: RESP 15
[2025-05-19 11:45] VITALS: BP_SYST 107; BP_SYST 110; BP_SYST 112; BP_DIAS 75; BP_DIAS 79; BP_DIAS 83; PULSE 118; PULSE 91; PULSE 92
--- NOTE | 2025-05-19 17:48 | DISCHARGE SUMMARY-Residence ---
Discharge Summary Providers to Resident Creating Document: MELANIEDANAE MONTALVO ~ Discharge Summary Admission Diagnosis: Stroke Hospital Course DATE OF ADMISSION: 05/17/2025 DATE OF DISCHARGE: 05/19/2025 Imaging: CTA head and neck: 1. No large vessel occlusion, aneurysmal dilatation, or dissection seen within the intracranial or cervical vessels. 2. Prominence of the main pulmonary artery, which may indicate pulmonary hypertension. Chest x-ray: Cardiomegaly with pulmonary vascular congestion and bilateral patchy airspace opacities. Small bilateral pleural effusions CT head: No acute intracranial abnormality. Echocardiogram: Normal LV size and wall thickness. Overall systolic function is normal. LVEF is 70%. RV appears normal in size and contractility. Left atrium is mildly dilated. Trileaflet AV appears sclerotic without stenosis. Trace insufficiency. MV is thickened with mild annular calcification and no stenosis. Trace mitral regurgitation. The tricuspid valve is normal in structure. Trace tricuspid regurgitation. The pulmonary valve is normal in structure. Trace pulmonic regurgitation. There is no pericardial effusion. MRI head: No acute intracranial abnormality seen. No evidence for acute infarct. Mild chronic small vessel schema change. Bilateral suboccipital craniectomy. Discharge Diagnosis\Comment: Generalized weakness and Left Hand weakness secondary to possible TIA Urinary tract infection Morbid obesity with BMI of 41.9 Hypertension Possible pulmonary hypertension Obstructive sleep apnea Operations\Procedures: None Consultants: None Complications: None Condition on DC: Stable New Medications: Cefdinir* (Cefdinir*) 300 Mg Capsule 1 CAP PO Q12H for 5 Days, #10 CAP Lactobacillus Rhamnosus (Culturelle) 10 Billion Cell Capsule 1 CAP PO DAILY for 5 Days, #5 CAP 0 Refills Continued Medications: Aspirin (Aspirin EC) 81 Mg Tablet.dr 1 TAB PO DAILY Atorvastatin Calcium (Atorvastatin Calcium) 40 Mg Tablet 1 TAB PO DAILY for 30 Days, #30 TAB 0 Refills Cholecalciferol (Vitamin D3) (Vitamin D3) 125 Mcg (5000 Unit) Tablet 1 TAB PO DAILY for 30 Days, #30 TAB 0 Refills Lisinopril (Lisinopril) 5 Mg Tablet 1 TAB PO DAILY Meloxicam (Meloxicam) 15 Mg Tablet 1 TAB PO DAILY Metformin HCl (Metformin HCl) 500 Mg Tablet 1 TAB PO BID Semaglutide (Ozempic) 2 Mg/0.75 Ml (8 Mg/3 Ml) Pen.injctr 2 MG SQ Q7D Sertraline HCl (Sertraline HCl) 100 Mg Tablet 2 TAB PO DAILY Discharge Summary: History of present illness from admission: 60 years old morbid obese female with past medical history of history of TIA, morbid obesity , depression ,Hypertension and with 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 Neurology was consulted and was recommended to continue aspirin 81 mg daily to manage blood pressure with permissive hypertension and no intervention was required. Aspiration precautions were taken and she was cleared by swallow test. Her CTA neck showed no large vessel occlusion, aneurysmal dilatation, diss ection within the intracranial or cervical vessels, and showed prominence of the main pulmonary artery which may indicate pulmonary hypertension. Her chest x- ray showed cardiomegaly with pulmonary vascular congestion and bilateral patchy airspace opacities with small bilateral pleural effusions. Her head CT showed no acute intracranial abnormality. Her MRI showed no acute intracranial abnormality except mild chronic small-vessel ischemic change and bilateral suboccipital craniectomy for Chiari malformation of the head. She was continued with her home medications aspirin 81 mg OD and atorvastatin 40 mg OD. She also complained of daily headaches and she was started on Tylenol p.r.n. Her orthostatic vitals were negative. Her symptoms were improved the next day, suggesting most likely TIA. She has no urinary symptoms but her urinalysis was positive for UTI and her urine culture came back positive with Klebsiella pneumonia and she was given IV 1 g Rocephin. She had mild shortness of breath possibly due to pulmonary hypertension related to her obstructive sleep apnea. Her echo was normal with LVEF of 70%. In view of soft blood pressure we held her home medication lisinopril. She had no neurological symptoms on the day of discharge. She was discharged with cefdinir 300 mg q.12h for 5 days for her UTI, aspirin 81 mg and atorvastatin 40 mg. Patient did not experience further complications throughout the entire hospital stay. Patient was seen and examined on the day of discharge. All labs, diagnostic workups, discharge plan discussed with the patient in detail during visit before discharge. All questions and concerns answered to the best of my professional knowledge. Advised at discharge: Please follow up with PCP within 1-2 weeks Please be compliant with CPAP use at home and monitor oxygen saturation Please monitor blood pressure and discuss with PCP about antihypertensive if hypotensive Please continue antibiotics for urinary tract infection for 5 days Recommended heart healthy diet Call 911 or come to ER if any further episodes of weakness, numbness, stroke, syncope, fall Examination at discharge: Awake , alert, and oriented x4, resting comfortably in the bed, in no acute distress HEENT: Atraumatic, normocephalic, EOMI, anicteric sclera ; pink conjunctiva Neck: Trachea midline. Supple, full range of motion, no JVD Cardiac: Regular rhythm, regular rate with no murmurs all over the precordium. Respiratory: Equal breath sounds bilaterally, no tachypnea, no wheezing ,rub or rales, Chest wall is symmetric and without deformity. Gastrointestinal: Abdomen symmetric, non-distended, soft, non-tender, normal bowel sounds x4 quadrant, normoactive, no hepatosplenomegaly Musculoskeletal: No pedal edema, no cyanosis Neurological: Speech is clear, alert, and oriented x 4. Normal Tone and Bulk in all extremities, deep tendon reflexes normal, cerebellar intact. Cranial nerves II-XII intact. Skin: Warm and dry Laboratory Tests Test 05/17/25 17:50 05/18/25 00:55 05/18/25 04:48 05/19/25 05:23 Urine Specimen Description Cln catch midstream Urine Color Straw Urine Clarity Slightly cloudy Urine pH 6.0 Urine Specific Shobonier <=1.005 Urine Protein Negative mg/dl Urine Glucose (UA) Negative mg/dl Urine Ketones Negative mg/dl Urine Occult Blood Small Urine Nitrite Negative Urine Bilirubin Negative Urine Urobilinogen 0.2 E.U/dL Urine Leukocyte Esterase Negative Urine RBC 0-2 /HPF Urine WBC 0-4 /HPF Urine Squamous Epithelial Cells Few /LPF Urine Amorphous Urates 1+ Urine Bacteria 4+ /HPF Urine Hyaline Casts 0-3 /LPF Urine Culture Indicated Indicated Volume Urine Centrifuged 10 ml Urine Comment Urine Opiates Screen Negative Urine Methadone Screen Negative Urine Fentanyl Screen Negative Urine Barbiturates Screen Negative Urine Phencyclidine Screen Negative Urine Amphetamines Screen Negative Urine Benzodiazepines Screen Negative Urine Cocaine Screen Negative Urine Cannabinoids Screen Negative Drug Screen Comment Troponin I High Sensitivity 6 ng/L White Blood Count 7.3 X10'3 5.3 X10'3 Red Blood Count 4.31 X10'6 4.38 X10'6 Hemoglobin 12.8 g/dl 13.1 g/dl Hematocrit 38.9 % 39.0 % Mean Corpuscular Volume 90.2 FL 89.0 FL Mean Corpuscular Hemoglobin 29.8 PG 29.8 PG Mean Corpuscular Hemoglobin Concent 33.0 g/dL 33.5 g/dL Red Cell Distribution Width 14.7 % 14.3 % Platelet Count 247 X10'3 232 X10'3 Mean Platelet Volume 6.7 FL 6.5 FL Neutrophils (%) (Auto) 60.8 % 60.4 % Lymphocytes (%) (Auto) 27.4 % 30.2 % Monocytes (%) (Auto) 7.7 % 6.1 % Eosinophils (%) (Auto) 3.5 % 2.7 % Basophils (%) (Auto) 0.6 % 0.6 % Neutrophils # (Auto) 4.4 X10'3 3.2 X10'3 Lymphocytes # (Auto) 2.0 X10'3 1.6 X10'3 Monocytes # (Auto) 0.6 X10'3 0.3 X10'3 Eosinophils # (Auto) 0.3 X10'3 0.1 X10'3 Basophils # (Auto) 0.0 X10'3 0.0 X10'3 CBC Comment Sodium Level 141 MMOL/L 139 MMOL/L Potassium Level 4.1 MMOL/L 4.5 MMOL/L Chloride Level 105 MMOL/L 101 MMOL/L Carbon Dioxide Level 32.3 MMOL/L 32.4 MMOL/L Anion Gap 4 6 Blood Urea Nitrogen 14 MG/DL 19 MG/DL Creatinine 0.83 MG/DL 0.79 MG/DL Estimated GFR/1.73 m2 70 ML/MIN 74 ML/MIN BUN/Creatinine Ratio 16.9 24.1 Glucose Level 80 MG/DL 92 MG/DL Hemoglobin A1c 5.3 % Calcium Level 8.8 MG/DL 9.1 MG/DL Magnesium Level 1.9 MG/DL 2.1 MG/DL Total Bilirubin 0.2 MG/DL 0.2 MG/DL Aspartate Amino Transf (AST/SGOT) 26 U/L 20 U/L Alanine Aminotransferase (ALT/SGPT) 27 U/L 24 U/L Alkaline Phosphatase 82 IU/L 78 IU/L Total Protein 6.8 G/DL 6.8 G/DL Albumin 3.4 G/DL 3.5 G/DL Globulin 3.4 G/DL 3.3 G/DL Albumin/Globulin Ratio 1.0 1.1 Triglycerides Level 123 MG/DL Cholesterol Level 151 MG/DL LDL Cholesterol 81 MG/DL HDL Cholesterol 43 MG/DL Cholesterol/HDL Ratio 3.5 Chemistry Comments *Problems/Diagnosis: (1) TIA (transient ischemic attack) (2) Pulmonary arterial hypertension (3) UTI (urinary tract infection) (4) Obstructive sleep apnea (5) Morbid obesity Total Time Spent on D/C: > 30 Minutes Date of Service: May 19, 2025 Billing Provider: JUSTIN BOX MD Common Visit Codes: 69572-RGE/OBS DISCH DAY >30min SELVIN NAVARRO, RES May 19, 2025 17:43 JUSTIN BOX MD May 22, 2025 13:59
== END 2025-05-19 15:00 | disposition home or self-care (01) | DRG 47 ==
LOC: ER 17:12 → ED HOLD 19:36 → ORTHO 4S 21:57
PROVIDERS: ADMIT Internal Medicine; ATTEND Internal Medicine
PROC: B3251ZZ Computerized Tomography (CT Scan) of Bilateral Common Carotid Arteries using Low Osmolar Contrast (ICD-10-PCS; principal; 2025-05-17)
PROC: B32G1ZZ Computerized Tomography (CT Scan) of Bilateral Vertebral Arteries using Low Osmolar Contrast (ICD-10-PCS; 2025-05-17)
PROC: B32R1ZZ Computerized Tomography (CT Scan) of Intracranial Arteries using Low Osmolar Contrast (ICD-10-PCS; 2025-05-17)
PROC: B3281ZZ Computerized Tomography (CT Scan) of Bilateral Internal Carotid Arteries using Low Osmolar Contrast (ICD-10-PCS; 2025-05-17)
DX: G45.9 Transient cerebral ischemic attack, unspecified (principal); I27.21 Secondary pulmonary arterial hypertension; J90 Pleural effusion, not elsewhere classified; B96.1 Klebsiella pneumoniae [K. pneumoniae] as the cause of diseases classified elsewhere; E66.01 Morbid (severe) obesity due to excess calories; N39.0 Urinary tract infection, site not specified; Z68.41 Body mass index [BMI] 40.0-44.9, adult; F32.A Depression, unspecified; I37.1 Nonrheumatic pulmonary valve insufficiency; I08.3 Combined rheumatic disorders of mitral, aortic and tricuspid valves; I10 Essential (primary) hypertension; G47.33 Obstructive sleep apnea (adult) (pediatric); Z96.651 Presence of right artificial knee joint; Z79.899 Other long term (current) drug therapy; Z86.73 Personal history of transient ischemic attack (TIA), and cerebral infarction without residual deficits; Z89.022 Acquired absence of left finger(s)
CPT/HCPCS: 36415; 70450; 70496; 70498; 70551; 71045; 80048; 80053; 80061; 80305; 81001; 82607; 83036; 83735; 83880; 84145; 84443; 84484; 85025; 85610; 85651; 85730; 86140; 87077; 87081; 87088; 87186; 93005; 93306; 96365; 96375; 97161; 97530; 99285; G0378; J0696; J1644; J2270; J2405; Q9967